=== PATIENT | male | born 1955 | race Caucasian/White ===

== ENCOUNTER → 2019-12-06 | Day surgery (SDC) | payer MEDICARE, BC ==
[2019-12-04 12:31] VITALS: BMI 29.5
[~2019-12-06] MED LIST: LACTATED RINGERS 1,000 ML IV SCH; LIDOCAINE 1% (10MG/ML) FOR IV START INTRADERMA PRN; PROPOFOL 10 MG/ML 20 ML VIAL IV ONE
[2019-12-06 10:39] VITALS: TEMP 97.2
--- NOTE | 2019-12-06 12:32 | P.PCN ---
Date of Procedure: 12/06/19 Procedure(s) Performed: BRIEF HISTORY: Patient is a 64-year-old pleasant male scheduled for an elective colonoscopy as a part of screening for colorectal neoplasia. PROCEDURE PERFORMED: Colonoscopy. PREOPERATIVE DIAGNOSIS: Screening for colon cancer. IV sedation per Anesthesia. PROCEDURE: After informed consent was obtained, the patient, was brought into the endoscopy unit. IV sedation was administered by Anesthesia under continuous monitoring. Digital rectal examination was normal. Initially the Olympus CF-160 flexible video colonoscope was then inserted in the rectum, gradually advanced into the cecum without any difficulty. Careful examination was performed as the scope was gradually being withdrawn. Ileocecal valve and the appendiceal orifice were visualized and appeared normal. Prep was excellent. Mucosa of the cecum, ascending colon, transverse colon, descending colon, sigmoid colon, and rectum appeared normal. Retroflexion was performed in the rectum and no lesions were seen. The patient tolerated the procedure well. IMPRESSION: Normal-appearing colon from rectum to cecum with no evidence of colorectal neoplasia . RECOMMENDATIONS: Findings of this examination were discussed with the patient as well as his family. He was advised to have a repeat screening colonoscopy in 10 years.
[2019-12-06 12:41] VITALS: RESP 16
[2019-12-06 12:51] VITALS: BP 163/84; PULSE 54
== END ==
LOC: ORWHC2ENDO 09:45
PROVIDERS: ATTEND Internal Medicine Gastroenterology
DX: Z12.11 Encounter for screening for malignant neoplasm of colon (principal); Z88.5 Allergy status to narcotic agent; Z79.899 Other long term (current) drug therapy; G43.909 Migraine, unspecified, not intractable, without status migrainosus
CPT/HCPCS: G0121; J2704; 45378

== ENCOUNTER → 2021-08-18 | Outpatient (CLI) | payer MEDICARE ==
--- NOTE | 2021-08-18 11:44 | XR ---
EXAMINATION TYPE: XR ribs bilateral DATE OF EXAM: 08/18/2021 COMPARISON: NONE HISTORY: Pain TECHNIQUE: 4 views were obtained in right and 4 views of the left rib cage. FINDINGS: Postcholecystectomy changes are noted. Chronic appearing deformities involving the right ri b cage consistent with remote trauma. There is a linear lucency through the posterior margin of left 10th rib. IMPRESSION: Suspicious for a hairline nondisplaced fracture posterior left 10th rib correlate with point tenderne ss.
== END | disposition home or self-care (01) ==
LOC: RADXRMAIN 10:47
PROVIDERS: ATTEND Internal Medicine
DX: R07.81 Pleurodynia (principal)
CPT/HCPCS: 71110

== ENCOUNTER 2022-02-22 21:36 | Observation (INO) | payer MEDICARE ==
[2022-02-22] MEDS ORDERED: SODIUM CHLORIDE 0.9% 1,000 ML IV ONE (21:45)
[2022-02-22 21:46] LABS: Glucose,Whole Blood 131 mg/dL (70-110)
[2022-02-22 22:10] LABS: Basophils # (A) 0.1 k/uL (0-0.2); Basophils % (A) 1 %; Eosinophils # (A) 0.4 k/uL (0-0.7); Eosinophils % (A) 5 %; HGB 14.2 gm/dL (13.0-17.5); Lymphocytes % (A) 41 %; MCH 33.8 pg (25.0-35.0); MCHC 34.7 g/dL (31.0-37.0); MCV 97.3 fL (80.0-100.0); Mean Platelet Volume 7.6; Monocytes # (A) 0.4 k/uL (0-1.0); Monocytes % (A) 5 %; Neutrophils # (A) 3.3 k/uL (1.3-7.7); Neutrophils % (A) 45 %; Platelet Count 215 k/uL (150-450); RBC 4.21 m/uL (4.30-5.90); RDW 12.7 % (11.5-15.5); WBC 7.2 k/uL (3.8-10.6)
[2022-02-22 22:25] LABS: ALT 25 U/L (4-49); AST 31 U/L (17-59); Acetaminophen <10.0 ug/mL; African American GFR (CKD) >90 (>60 ml/min/1.73 sqM); Albumin 4.7 g/dL (3.5-5.0); Alkaline Phosphatase 64 U/L (38-126); Anion Gap 10 mmol/L; Blood Urea Nitrogen 18 mg/dL (9-20); Carbon Dioxide 24 mmol/L (22-30); Chloride 104 mmol/L (98-107); Glucose 132 mg/dL (74-99); Non-African American GFR(CKD) >90 (>60 ml/min/1.73 sqM); Potassium 4.2 mmol/L (3.5-5.1); Salicylate <1.0 mg/dL; Sodium 138 mmol/L (137-145); Total Bilirubin 0.8 mg/dL (0.2-1.3); Total Protein 7.6 g/dL (6.3-8.2)
[2022-02-22 22:28] LABS: INR 0.9 (<1.2); Partial Thromboplastin Time 24.4 sec (22.0-30.0); Prothrombin Time 9.9 sec (9.0-12.0)
[2022-02-22 22:48] LABS: Alcohol 186 mg/dL
--- NOTE | 2022-02-22 23:07 | XR ---
EXAMINATION TYPE: XR chest 2V DATE OF EXAM: 02/22/2022 COMPARISON: NONE HISTORY: Altered mental status TECHNIQUE: 2 views FINDINGS: Heart is normal. Lungs are clear of consolidation. There are no hilar masses. Costophrenic angles are clear. There are chest leads. IMPRESSION: No active cardiopulmonary disease. Normal heart.
--- NOTE | 2022-02-22 23:08 | XR ---
EXAMINATION TYPE: XR pelvis AP view DATE OF EXAM: 02/22/2022 COMPARISON: NONE HISTORY: Syncope. Pain. TECHNIQUE: FINDINGS: A single view of the pelvis shows no fracture. Hip joint spaces are normal. Proximal femurs are intact. Sacroiliac joints are intact. IMPRESSION: Normal exam. No fracture.
--- NOTE | 2022-02-22 23:16 | CT ---
EXAMINATION TYPE: CT brain fouziaine wo con DATE OF EXAM: 02/22/2022 COMPARISON: None HISTORY: Altered mental status. New episodes of syncope. CT DLP: 1744.6 mGycm Automated exposure control for dose reduction was used. Images of the brain and cervical spine obtained with no contrast. Ventricles are fairly normal size. There is no mass effect or midline shift. No sign of intracranial hemorrhage. The calvarium is intact. There is hyperostosis frontalis. The cervical vertebra have normal alignment. Posterior elements are intact. No compression fracture. Disc spaces are normal. Prevertebral soft tissues are intact. Facet joints are intact. There is kaylan l aeration of the mastoid air cells. IMPRESSION: Normal CT scan of the cervical spine. Negative CT scan of the brain. No acute intracranial abnormality.
[2022-02-23] MEDS ORDERED: NALOXONE 0.4 MG/ML 1 ML VIAL IV PRN (00:37)
[2022-02-23 00:58] LABS: Appearance,Urine Clear (Clear); Bilirubin,Urine Negative (Negative); Blood,Urine Negative (Negative); Color,Urine Colorless; Glucose,Urine (UA) Negative (Negative); Ketones,Urine Negative (Negative); Leukocyte Esterase,Urine Negative (Negative); Nitrite,Urine Negative (Negative); PH, Urine 6.5 (5.0-8.0); Protein,Urine Negative (Negative); Specific Gravity,Urine 1.006 (1.001-1.035); Urobilinogen,Urine <2.0 mg/dL (<2.0)
[2022-02-23 01:18] LABS: Cocaine Screen,Urine Not Detected (NotDetected); Opiate Screen,Urine Detected (NotDetected); Phencyclidine Screen,Urine Not Detected (NotDetected); Urn Cannabinoid Scrn Not Detected (NotDetected)
[2022-02-23 01:19] LABS: Amphetamine Screen,Urine Not Detected (NotDetected); Barbiturate Screen,Urine Not Detected (NotDetected); Benzodiazepines Screen,Urine Not Detected (NotDetected); Methadone Screen, Urine Not Detected (NotDetected); Oxycodone Screen, Urine Not Detected (NotDetected); Tricyclic Antidepressant,Urine Not Detected (NotDetected)
[2022-02-23] MEDS ORDERED: LORazepam 2 MG/ML INJ IV PRN ×3 (02:42)
[2022-02-23] MEDS ORDERED: THIAMINE 100 MG/ML 2 ML VIAL IM STA (02:42)
--- NOTE | 2022-02-23 02:44 | P.HPIM ---
History of Present Illness H&P Date: 02/22/22 The patient is a 66-year-old male with a PMH of Klinefelter syndrome, and EtOH abuse who was brought into the emergency room by EMS after a fall and possible syncope. The patient reports that he had been drinking as per usual and had a few drinks when he was attempting to walk around in his house when he lost his balance and fell. He was unable to get up and crawled to his phone and contacted his sister was subsequently activated EMS. History was supplemented by the ED provider. The patient apparently had endorsed episodes of loss of consciousness to the ED provider. The patient's power of divorce attorney had expressed concerns due to possible previous episodes of syncope, at which point the d ecision was made to admit the patient for further evaluation. At time of interview, the patient does not recall the full length of the day but states that he may or may not have lost consciousness. He reports drinking 3 large drinks of alcohol daily as well as 2 shots. In the emergency room, a he ad/cervical spine CT was unremarkable with a pelvis x-ray unremarkable and a chest x-ray also unremarkable. Laboratory evaluation was remarkable for coronavirus PCR positive in serum alcohol level 186.. The patient denied experiencing cough, fever, chest pain, shortness of breath, nausea, vomiting. He denied experiencing head trauma, headaches, weakness, numbness, tingling, visual disturbance, or gait abnormalities. Review of systems: Pertinent positives and negatives as discussed in HPI, a complete review of systems was performed and all other systems are negative. Physical examination: General: non toxic, no distress, appears at stated age, obese Derm: no unusual rashes/lesions, warm Head: atraumatic, normocephalic, symmetric Eyes: EOMI, no lid lag, anicteric sclera, pupils equal round reactive to light ENT: Nose and ears atraumatic Neck: No cervical lymphadenopathy, trachea midline, supple Mouth: no lip lesion, mucus membranes moist Cardiovascular: S1S2 reg, no murmur, positive dorsalis pedis pulse bilateral, no edema Lungs: CTA bilateral, no rhonchi, no rales, no accessory muscle use Abdominal: soft, nontender to palpation, no guarding Ext: muscle strength 5 out of 5 in all 4 extremities grossly, no gross muscle atrophy, no contractures, Neuro: CN II-XI grossly intact, no gross focal neuro deficits Psych: Alert, oriented, appropriate affect Assessment/plan Fall, possible syncope, unclear etiology -May be due to alcohol intoxication -Fall precautions -Echocardiogram -Cardiac monitoring -Neurology consulted by ED provider Alcohol intoxication -Patient denied prior history of delirium tremens -Monitor for signs of withdrawal -Thiamine, multivitamin, IV fluids -Monitor electrolytes Coronavirus PCR positive -Patient currently asymptomatic -Monitor for now DVT prophylaxis -Heparin subcu The patient is admitted with an anticipated less than 2 midnight stay for evaluation of fall CODE STATUS: Full Code Discussed with: Patient Anticipated discharge date: in am Anticipated discharge place: Home Past Medical History Past Medical History: Cancer, GERD/Reflux, Neurologic Disorder Additional Past Medical History / Comment(s): hx stage 3 bone cancer-in remission per pt. + COLOGARD. MIGRAINE HEADACHES. CHRONIC SINUS INFECTIONS History of Any Multi-Drug Resistant Organisms: None Reported Past Surgical History: Cholecystectomy, Orthopedic Surgery Additional Past Surgical History / Comment(s): COLONOSCOPY. RT KNEE SX X 3. LT ROTATOR CUFF REPAIR. TUMORS REMOVED FROM NECK Past Anesthesia/Blood Transfusion Reactions: Postoperative Nausea & Vomiting (PONV) Past Psychological History: No Psychological Hx Reported Smoking Status: Former smoker - Past Family History Father Sister(s) Family Medical History: Cancer Medications and Allergies Home Medications Medication Instructions Recorded Confirmed Type Albuterol Sulfate [Proair Hfa] 1 - 2 puff INHALATION Q6HR PRN 12/04/19 12/04/19 History SUMAtriptan succinate [Imitrex] 100 mg PO DAILY PRN 12/04/19 12/04/19 History Topiramate [Topamax] 25 mg PO BID 12/04/19 12/04/19 History Allergies Allergy/AdvReac Type Severity Reaction Status Date / Time hydromorphone [From Dilaudid] Allergy Itching Verified 02/22/22 21:47 venom-honey bee Allergy Anaphylaxis Verified 02/22/22 21:47 venom-wasp Allergy Anaphylaxis Verified 02/22/22 21:47 Physical Exam Vitals: Vital Signs Temp Pulse Resp BP Pulse Ox 02/23/22 02:00 76 15 151/78 95 02/23/22 00:47 76 16 148/90 98 02/22/22 23:47 78 16 155/78 98 02/22/22 21:40 97.5 F L 87 19 179/95 100 Intake and Output 02/22/22 02/22/22 02/23/22 14:59 22:59 06:59 Other: Weight 124.284 kg Results CBC & Chem 7: 02/22/22 21:54 02/22/22 21:54 Labs: Abnormal Lab Results - Last 24 Hours (Table) 02/22/22 02/22/22 02/22/22 Range/Units 21:45 21:54 21:54 RBC 4.21 L (4.30-5.90) m/uL Glucose 132 H (74-99) mg/dL POC Glucose (mg/dL) 131 H (70-110) mg/dL Urine Opiates Screen (NotDetected) SARS-CoV-2 (PCR) (Not Detectd) 02/22/22 02/22/22 Range/Units 21:54 23:59 RBC (4.30-5.90) m/uL Glucose (74-99) mg/dL POC Glucose (mg/dL) (70-110) mg/dL Urine Opiates Screen Detected H (NotDetected) SARS-CoV-2 (PCR) Detected A (Not Detectd)
[2022-02-23] MEDS ORDERED: SODIUM CHLORIDE 0.9% 1,000 ML IV SCH (02:45)
--- NOTE | 2022-02-23 03:37 | ED ---
General Adult HPI - General Chief complaint: Syncope Stated complaint: Altered Mental Status Time Seen by Provider: 02/22/22 21:37 Source: patient, family, EMS, RN notes reviewed, old records reviewed Mode of arrival: EMS - History of Present Illness Initial comments: Patient is a 66-year-old male with past medical history remarkable for neurological disorder, GERD, cancer who presents emergency department after suspected syncopal episodes at home. Patient exited family stating he doesn't feel well. States he was drinking "a few drinks" of alcohol this evening. They found him on the ground at home. He believed he was unresponsive and "not breathing" however when EMS arrived he was awake. Minimal if any confusion. Was talking full sentences. He then would become "unresponsive" for EMS but required minimal if any stimulation to awaken. Patient states he was able to hear voices around him when these episodes were occurring. Woke no longer confused. Denies any tongue biting or incontinence. Does endorse drinking alcohol this evening. No other acute complaints at this time. Family corroborated the story. Presents for further evaluation at this time. Denies any history of DTs or alcohol withdrawals. Denies any history of seizures. No history of psychiatric illness. States he is not on blood thinners. Does not believe that he has had.When patient arrived, he was having one of his episodes of passing out, and all I did was gently open his eyelids to check his pupils and he awoke with no confusion whatsoever. This occurred a second time and a similar event occurred. Was not typical for syncopal episode, or postictal confusion state. Patient was able to fight full history otherwise. - Related Data Home Medications Medication Instructions Recorded Confirmed Albuterol Sulfate [Proair Hfa] 1 - 2 puff INHALATION Q6HR PRN 12/04/19 12/04/19 SUMAtriptan succinate [Imitrex] 100 mg PO DAILY PRN 12/04/19 12/04/19 Topiramate [Topamax] 25 mg PO BID 12/04/19 12/04/19 Allergies Allergy/AdvReac Type Severity Reaction Status Date / Time hydromorphone [From Dilaudid] Allergy Itching Verified 02/22/22 21:47 venom-honey bee Allergy Anaphylaxis Verified 02/22/22 21:47 venom-wasp Allergy Anaphylaxis Verified 01/17/23 21:47 Review of Systems ROS Statement: Those systems with pertinent positive or pertinent negative responses have been documented in the HPI. Review of Systems: CONST: Denies fever EYES: Denies blurry vision ENT: Denies nasal congestion C/V: Denies Chest pain RESP: Denies shortness of breath GI: Denies abdominal pain : Denies dysuria SKIN: Denies rash. MSK: Denies joint pain. NEURO: Denies headache ROS Other: All systems not noted in ROS Statement are negative. Past Medical History Past Medical History: Cancer, GERD/Reflux, Neurologic Disorder Additional Past Medical History / Comment(s): hx stage 3 bone cancer-in remission per pt. + COLOGARD. MIGRAINE HEADACHES. CHRONIC SINUS INFECTIONS History of Any Multi-Drug Resistant Organisms: None Reported Past Surgical History: Cholecystectomy, Orthopedic Surgery Additional Past Surgical History / Comment(s): COLONOSCOPY. RT KNEE SX X 3. LT ROTATOR CUFF REPAIR. TUMORS REMOVED FROM NECK Past Anesthesia/Blood Transfusion Reactions: Postoperative Nausea & Vomiting (PONV) Past Psychological History: No Psychological Hx Reported Smoking Status: Former smoker - Past Family History Father Sister(s) Family Medical History: Cancer General Exam - General Exam Comments Initial Comments: General: Appears in no acute distress. Appears acutely intoxicated with alcohol. HEAD: Normal with no signs of head trauma. Negative Vargas sign, negative raccoon eyes. EYES: PERRLA, EOMI, conjunctiva normal, no discharge. Pupils are 3 mm and equal bilaterally. ENT: Hearing grossly intact, normal oropharynx. RESPIRATORY: Clear breath sounds bilaterally. No wheezes, rales, or rhonchi. C/V: Regular rate and rhythm. S1 and S2 auscultated, no edema, peripheral pulses 2+ and intact throughout ABD: Abd is soft, nontender, nondistended EXT: Normal range of motion, no obvious deformity. Pelvis is stable. No midline spine tenderness to palpation. SKIN: No rashes or lesions observed on exposed skin. NEURO: Alert and oriented x 4. Cranial nerves II-XII intact. No focal sensory or strength deficits. GCS of 15. NIH is 0. Course Vital Signs 02/22/22 02/22/22 02/23/22 21:40 23:47 00:47 Temperature 97.5 F L Pulse Rate 87 78 76 Respiratory 19 16 16 Rate Blood Pressure 179/95 155/78 148/90 O2 Sat by Pulse 100 98 98 Oximetry 02/23/22 02:00 Temperature Pulse Rate 76 Respiratory 15 Rate Blood Pressure 151/78 O2 Sat by Pulse 95 Oximetry Medical Decision Making - Medical Decision Making Based on the patient's presentation and physical exam, I'm uncertain what exactly caused the patient to have "passing out episodes" at home. Cannot rule out intracranial injury, infectious, cardiac etiology. However the "passing out episodes" occurred while here in the department in front of me inpatient was easily awakens by simply shaking the shoulder or opening his eyes. They do not appear to be real syncopal episodes. They also do not appear to be seizures. Possible pseudoseizures. Possibly related to his alcohol intoxication. Patient states that he fell at home which is why he called EMS. Family was concerned that he passed out. Denies any coughing or anything else. We will obtain broad altered mental status workup. He was in agreement this plan. Vital signs with in acceptable limits. Exam is unremarkable. Lavatory studies were remarkable for an undetectable troponin. Opiates are positive. Patient's on-call level is 186. Patient is incidentally positive for Covid with no symptoms. EKG showed no signs of ischemia. Chest x-ray reveals no acute cardio Poni process. Pelvis x-ray reveals no acute injury. Head CT reveals no intracranial injury or hemorrhage. CT C-spine reveals no acute injury. On reevaluation, patient appears well. Exam is unchanged. He is alert, speaking in full sentences. Still appears in talking with alcohol. Family is at bedside. Family and patient are insisting that he had a syncopal episode. We did discuss his workup in the story that was provided. I did express my belief that if it was a syncopal episode, it did appear atypical and his workup was unremarkable. They would like him to be evaluated by neurology, as they stated it happened multiple times. I do not believe this is unreasonable therefore they will be admitted to observation with neurology consult. I spoke with the admitting physician, Dr. Gaytan who accepted the admission. Neurology was consulted. Was pt. sent in by a medical professional or institution (, [facility], UNDERWRITING CONSULTANT, urgent care, hospital, or snf...) When possible be specific @ -No Did you speak to anyone other than the patient for history (EMS, parent, family, police, friend...)? What history was obtained from this source @ -Yes, patient's sister was at bedside and provided some history of the nigh t's events. Did you review nursing and triage notes (agree or disagree)? Why? @ -I reviewed and agree with nursing and triage notes Were old charts reviewed (outside hosp., previous admission, EMS record, old EKG, old radiological studies, urgent care reports/EKG's, snf records)? Report findings @ -No old charts were reviewed Differential Diagnosis (chest pain, altered mental status, abdominal pain women, abdominal pain men, vaginal bleeding, weakness, fever, dyspnea, syncope, headache, dizziness, GI bleed, back pain, seizure, CVA, palpatations, mental health)? @ -Differential Altered Mental Status: Hypoglycemia, DKA, hypercapnia, ETOH, overdose, CO poisoning, trauma, myxedema coma, HTN encephalopathy, infection, encephalitis, psychosis, intercranial hemorrhage, hepatic encephalopathy, meningitis, CVA, this is not meant to be an all-inclusive list EKG interpreted by me (3pts min.). @ -As above X-rays interpreted by me (1pt min.). @ -Chest x-ray showed no acute cardio pulmonary process, injury. Pelvis x-ray reveals no acute injury CT interpreted by me (1pt min.). @ -CT brain reveals no acute intracranial process, hemorrhage. CT C-spine rev eals no acute injury. U/S interpreted by me (1pt. min.). @ -None done What testing was considered but not performed or refused? (CT, X-rays, U/S, labs)? Why? @ -None What meds were considered but not given or refused? Why? @ -None Did you discuss the management of the patient with other professionals (professionals i.e. , PA, UNDERWRITING CONSULTANT, lab, RT, psych nurse, nursing home social worker, tractor operator battery, teacher, disciplinary hearing officer, bilingual case manager)? Give summary @ -No Was smoking cessation discussed for >3mins.? @ -No Was critical care preformed (if so, how long)? @ -Yes. 35 minutes. Were there social determinants of health that impacted care today? How? (Homelessness, low income, unemployed, alcoholism, drug addiction, transportation, low edu. Level, literacy, decrease access to med. care, nursing home, rehab)? @ -No Was there de-escalation of care discussed even if they declined (Discuss DNR or withdrawal of care, Hospice)? DNR status @ -No What co-morbidities impacted this encounter? (DM, HTN, Smoking, COPD, CAD, Cancer, CVA, ARF, Chemo, Hep., AIDS, mental health diagnosis, sleep apnea, morbid obesity)? @ -Alcohol intoxication Was patient admitted / discharged? Hospital course, mention meds given and route, prescriptions, significant lab abnormalities, going to OR and other pertinent info. @ -Patient was admitted to observation. See above for ED course. Undiagnosed new problem with uncertain prognosis? @ -No Drug Therapy requiring intensive monitoring for toxicity (Heparin, Nitro, Insulin, Cardizem)? @ -No Were any procedures done? @ -No Diagnosis/symptom? @ -Possible syncopal episode versus fall versus pseudoseizure Acute, or Chronic, or Acute on Chronic? @ -Acute Uncomplicated (without systemic symptoms) or Complicated (systemic symptoms)? @ -Uncomplicated Side effects of treatment? @ -No Exacerbation, Progression, or Severe Exacerbation? @ -No Poses a threat to life or bodily function? How? (Chest pain, USA, CT, pneumonia, PE, COPD, DKA, ARF, appy, cholecystitis, CVA, Diverticulitis, Homicidal, Gabriel icidal, threat to staff... and all critical care pts) @ -No Diagnosis/symptom? @ -Altered mental status Acute, or Chronic, or Acute on Chronic? @ -Acute Uncomplicated (without systemic symptoms) or Complicated (systemic symptoms)? @ -Uncomplicated Side effects of treatment? @ -none Exacerbation, Progression, or Severe Exacerbation] @ -no Poses a threat to life or bodily function? @ -no Diagnosis/symptom? @ -Acute alcohol intoxication Acute, or Chronic, or Acute on Chronic? @ -Acute Uncomplicated (without systemic symptoms) or Complicated (systemic symptoms)? @ -Uncomplicated Side effects of treatment? @ -none Exacerbation, Progression, or Severe Exacerbation] @ -no Poses a threat to life or bodily function? @ -no - Lab Data Result diagrams: 02/22/22 21:54 02/22/22 21:54 Lab Results 02/22/22 02/22/22 02/22/22 Range/Units 21:45 21:54 21:54 WBC 7.2 (3.8-10.6) k/uL RBC 4.21 L (4.30-5.90) m/uL Hgb 14.2 (13.0-17.5) gm/dL Hct 41.0 (39.0-53.0) % MCV 97.3 (80.0-100.0) fL MCH 33.8 (25.0-35.0) pg MCHC 34.7 (31.0-37.0) g/dL RDW 12.7 (11.5-15.5) % Plt Count 215 (150-450) k/uL MPV 7.6 Neutrophils % 45 % Lymphocytes % 41 % Monocytes % 5 % Eosinophils % 5 % Basophils % 1 % Neutrophils # 3.3 (1.3-7.7) k/uL Lymphocytes # 3.0 (1.0-4.8) k/uL Monocytes # 0.4 (0-1.0) k/uL Eosinophils # 0.4 (0-0.7) k/uL Basophils # 0.1 (0-0.2) k/uL PT 9.9 (9.0-12.0) sec INR 0.9 (<1.2) APTT 24.4 (22.0-30.0) sec Sodium (137-145) mmol/L Potassium (3.5-5.1) mmol/L Chloride (98-107) mmol/L Carbon Dioxide (22-30) mmol/L Anion Gap mmol/L BUN (9-20) mg/dL Creatinine (0.66-1.25) mg/dL Est GFR (CKD-EPI)AfAm (>60 ml/min/1.73 sqM) Est GFR (CKD-EPI)NonAf (>60 ml/min/1.73 sqM) Glucose (74-99) mg/dL POC Glucose (mg/dL) 131 H (70-110) mg/dL POC Glu Student Loan Counselor ID Sathish Saha Calcium (8.4-10.2) mg/dL Total Bilirubin (0.2-1.3) mg/dL AST (17-59) U/L ALT (4-49) U/L Alkaline Phosphatase (38-126) U/L Ammonia (<30) umol/L Troponin I (0.000-0.034) ng/mL Total Protein (6.3-8.2) g/dL Albumin (3.5-5.0) g/dL Urine Color Urine Appearance (Clear) Urine pH (5.0-8.0) Ur Specific Barton (1.001-1.035) Urine Protein (Negative) Urine Glucose (UA) (Negative) Urine Ketones (Negative) Urine Blood (Negative) Urine Nitrite (Negative) Urine Bilirubin (Negative) Urine Urobilinogen (<2.0) mg/dL Ur Leukocyte Esterase (Negative) Salicylates mg/dL Urine Opiates Screen (NotDetected) Ur Oxycodone Screen (NotDetected) Urine Methadone Screen (NotDetected) Ur Propoxyphene Screen (NotDetected) Acetaminophen ug/mL Ur Barbiturates Screen (NotDetected) U Tricyclic Antidepress (NotDetected) Ur Phencyclidine Scrn (NotDetected) Ur Amphetamines Screen (NotDetected) U Methamphetamines Scrn (NotDetected) U Benzodiazepines Scrn (NotDetected) Urine Cocaine Screen (NotDetected) U Marijuana (THC) Screen (NotDetected) Serum Alcohol mg/dL Influenza Type A (PCR) (Not Detectd) Influenza Type B (PCR) (Not Detectd) RSV (PCR) (Not Detectd) SARS-CoV-2 (PCR) (Not Detectd) 02/22/22 02/22/22 02/22/22 Range/Units 21:54 21:54 21:54 WBC (3.8-10.6) k/uL RBC (4.30-5.90) m/uL Hgb (13.0-17.5) gm/dL Hct (39.0-53.0) % MCV (80.0-100.0) fL MCH (25.0-35.0) pg MCHC (31.0-37.0) g/dL RDW (11.5-15.5) % Plt Count (150-450) k/uL MPV Neutrophils % % Lymphocytes % % Monocytes % % Eosinophils % % Basophils % % Neutrophils # (1.3-7.7) k/uL Lymphocytes # (1.0-4.8) k/uL Monocytes # (0-1.0) k/uL Eosinophils # (0-0.7) k/uL Basophils # (0-0.2) k/uL PT (9.0-12.0) sec INR (<1.2) APTT (22.0-30.0) sec Sodium 138 (137-145) mmol/L Potassium 4.2 (3.5-5.1) mmol/L Chloride 104 (98-107) mmol/L Carbon Dioxide 24 (22-30) mmol/L Anion Gap 10 mmol/L BUN 18 (9-20) mg/dL Creatinine 0.83 (0.66-1.25) mg/dL Est GFR (CKD-EPI)AfAm >90 (>60 ml/min/1.73 sqM) Est GFR (CKD-EPI)NonAf >90 (>60 ml/min/1.73 sqM) Glucose 132 H (74-99) mg/dL POC Glucose (mg/dL) (70-110) mg/dL POC Glu Student Loan Counselor ID Calcium 9.0 (8.4-10.2) mg/dL Total Bilirubin 0.8 (0.2-1.3) mg/dL AST 31 (17-59) U/L ALT 25 (4-49) U/L Alkaline Phosphatase 64 (38-126) U/L Ammonia 10 (<30) umol/L Troponin I <0.012 (0.000-0.034) ng/mL Total Protein 7.6 (6.3-8.2) g/dL Albumin 4.7 (3.5-5.0) g/dL Urine Color Urine Appearance (Clear) Urine pH (5.0-8.0) Ur Specific Barton (1.001-1.035) Urine Protein (Negative) Urine Glucose (UA) (Negative) Urine Ketones (Negative) Urine Blood (Negative) Urine Nitrite (Negative) Urine Bilirubin (Negative) Urine Urobilinogen (<2.0) mg/dL Ur Leukocyte Esterase (Negative) Salicylates <1.0 mg/dL Urine Opiates Screen (NotDetected) Ur Oxycodone Screen (NotDetected) Urine Methadone Screen (NotDetected) Ur Propoxyphene Screen (NotDetected) Acetaminophen <10.0 ug/mL Ur Barbiturates Screen (NotDetected) U Tricyclic Antidepress (NotDetected) Ur Phencyclidine Scrn (NotDetected) Ur Amphetamines Screen (NotDetected) U Methamphetamines Scrn (NotDetected) U Benzodiazepines Scrn (NotDetected) Urine Cocaine Screen (NotDetected) U Marijuana (THC) Screen (NotDetected) Serum Alcohol 186 mg/dL Influenza Type A (PCR) (Not Detectd) Influenza Type B (PCR) (Not Detectd) RSV (PCR) (Not Detectd) SARS-CoV-2 (PCR) (Not Detectd) 02/22/22 02/22/22 Range/Units 21:54 23:59 WBC (3.8-10.6) k/uL RBC (4.30-5.90) m/uL Hgb (13.0-17.5) gm/dL Hct (39.0-53.0) % MCV (80.0-100.0) fL MCH (25.0-35.0) pg MCHC (31.0-37.0) g/dL RDW (11.5-15.5) % Plt Count (150-450) k/uL MPV Neutrophils % % Lymphocytes % % Monocytes % % Eosinophils % % Basophils % % Neutrophils # (1.3-7.7) k/uL Lymphocytes # (1.0-4.8) k/uL Monocytes # (0-1.0) k/uL Eosinophils # (0-0.7) k/uL Basophils # (0-0.2) k/uL PT (9.0-12.0) sec INR (<1.2) APTT (22.0-30.0) sec Sodium (137-145) mmol/L Potassium (3.5-5.1) mmol/L Chloride (98-107) mmol/L Carbon Dioxide (22-30) mmol/L Anion Gap mmol/L BUN (9-20) mg/dL Creatinine (0.66-1.25) mg/dL Est GFR (CKD-EPI)AfAm (>60 ml/min/1.73 sqM) Est GFR (CKD-EPI)NonAf (>60 ml/min/1.73 sqM) Glucose (74-99) mg/dL POC Glucose (mg/dL) (70-110) mg/dL POC Glu Student Loan Counselor ID Calcium (8.4-10.2) mg/dL Total Bilirubin (0.2-1.3) mg/dL AST (17-59) U/L ALT (4-49) U/L Alkaline Phosphatase (38-126) U/L Ammonia (<30) umol/L Troponin I (0.000-0.034) ng/mL Total Protein (6.3-8.2) g/dL Albumin (3.5-5.0) g/dL Urine Color Colorless Urine Appearance Clear (Clear) Urine pH 6.5 (5.0-8.0) Ur Specific Barton 1.006 (1.001-1.035) Urine Protein Negative (Negative) Urine Glucose (UA) Negative (Negative) Urine Ketones Negative (Negative) Urine Blood Negative (Negative) Urine Nitrite Negative (Negative) Urine Bilirubin Negative (Negative) Urine Urobilinogen <2.0 (<2.0) mg/dL Ur Leukocyte Esterase Negative (Negative) Salicylates mg/dL Urine Opiates Screen Detected H (NotDetected) Ur Oxycodone Screen Not Detected (NotDetected) Urine Methadone Screen Not Detected (NotDetected) Ur Propoxyphene Screen Not Detected (NotDetected) Acetaminophen ug/mL Ur Barbiturates Screen Not Detected (NotDetected) U Tricyclic Antidepress Not Detected (NotDetected) Ur Phencyclidine Scrn Not Detected (NotDetected) Ur Amphetamines Screen Not Detected (NotDetected) U Methamphetamines Scrn Not Detected (NotDetected) U Benzodiazepines Scrn Not Detected (NotDetected) Urine Cocaine Screen Not Detected (NotDetected) U Marijuana (THC) Screen Not Detected (NotDetected) Serum Alcohol mg/dL Influenza Type A (PCR) Not Detected (Not Detectd) Influenza Type B (PCR) Not Detected (Not Detectd) RSV (PCR) Not Detected (Not Detectd) SARS-CoV-2 (PCR) Detected A (Not Detectd) - EKG Data -: EKG Interpreted by Me EKG Comments: 12-lead Electrocardiogram Interpretation Note EKG was reviewed and interpreted by myself. 12-lead ECG performed at 2145 is interpreted by me as revealing normal sinus rhythm at a rate of 86 beats per minute. [place] is normal. ND interval is 194 ms. QRS durations 111 ms, QTc is 399 ms.. There were no ST or T wave abnormalities to suggest myocardial ischemia or injury. R wave progression across the precordium was satisfactory. By my interpretation this EKG is non-diagnostic for acute ischemia. No prior EKG for comparison. Critical Care Time Critical Care Time: Yes Total Critical Care Time: 35 Critical Care Time: Upon my evaluation, this patient had a high probability of imminent or life-threatening deterioration due to altered mental status, possible syncope, fall, alcohol intoxication, which required my direct attention, intervention, and personal management. I have personally provided 35 minutes of critical care time exclusive of time spent on separately billable procedures. Time includes review of laboratory data, radiology results, discussion with consultants, and monitoring for potential decompensation. Interventions were performed as documented in my note. Disposition Clinical Impression: Fall, Syncope, Altered mental status, Alcohol intoxication Disposition: ADMITTED IP TO THIS HOSP Condition: Stable Time of Disposition: 00:37
[2022-02-23] MEDS ORDERED: HEPARIN SODIUM,PORCINE/PF 5,000 UNIT/0.5 ML SYRINGE SQ SCH (08:00)
[2022-02-23 08:32] VITALS: BP 169/89; PULSE 85; RESP 18; TEMP 98.1
[2022-02-23] MEDS ORDERED: MULTIVITAMINS, THERA 1 EACH TAB PO SCH (09:00)
[2022-02-23] MEDS ORDERED: FOLIC ACID 1 MG TAB PO SCH (09:00)
--- NOTE | 2022-02-23 14:20 | P.DS ---
Providers Date of admission: 02/23/22 00:38 Expected date of discharge: 02/23/22 Attending physician: Talat Gaytan MD Consults: 02/23/22 00:37 Consult Physician Routine Consulting Provider: Rodrick Gibbons Consult Reason/Comments: syncope? pseudoseizure? Do you want consulting provider notified?: Yes, Notify in am Primary care physician: [facility] Course: The patient is a 66-year-old male with a PMH of Klinefelter syndrome, and EtOH abuse who was brought into the emergency room by EMS after a fall and possible syncope. The patient reports that he had been drinking as per usual and had a few drinks when he was attempting to walk around in his house when he lost his balance and fell. He was unable to get up and crawled to his phone and contacted his sister was subsequently activated EMS. History was supplemented by the ED provider. The patient apparently had endorsed episodes of loss of consciousness to the ED provider. The patient's power of patent prosecution attorney had expressed concerns due to possible previous episodes of syncope, at which point the decision was made to admit the patient for further evaluation. At time of interview, the patient does not recall the full length of the day but states that he may or may not have lost consciousness. He reports drinking 3 large drinks of alcohol daily as well as 2 shots. In the emergency room, a head/ce rvical spine CT was unremarkable with a pelvis x-ray unremarkable and a chest x- ray also unremarkable. Laboratory evaluation was remarkable for coronavirus PCR positive in serum alcohol level 186.. The patient denied experiencing cough, fever, chest pain, shortness of breath, nausea, vomiting. He denied experiencing head trauma, headaches, weakness, numbness, tingling, visual disturbance, or gait abnormalities. Echocardiogram was ordered. Neurology was consulted by the ED provider. Patient left against medical prior to being seen by me. Pertinent studies include chest x-ray, pelvis x-ray, head CT, CT C-spine Discharge diagnosis: Fall, possible syncope, unclear etiology Alcohol intoxication Coronavirus PCR positive Patient Condition at Discharge: Undetermined Plan - Discharge Summary New Discharge Prescriptions: No Action Albuterol Sulfate [Proair Hfa] 2 puff INHALATION RT-Q6H PRN PRN Reason: Shortness Of Breath Topiramate [Topamax] 25 mg PO BID Discharge Medication List Albuterol Sulfate [Proair Hfa] 2 puff INHALATION RT-Q6H PRN 12/04/19 [History] Topiramate [Topamax] 25 mg PO BID 12/04/19 [History] Discharge Disposition: Left Against Medical Advice
--- NOTE | 2022-02-23 18:06 | P.PN ---
Progress Note - Text Progress Note Date: 02/23/22 I have ordered an EEG because of consult of syncope or pseudoseizure. It seems patient has left AMA.
[2022-02-24] MEDS ORDERED: THIAMINE 100 MG TAB PO SCH (09:00)
== END 2022-02-23 10:25 | disposition left against medical advice (07) ==
LOC: EC 21:36 → 6NMEDSUR 02-23 00:38
PROVIDERS: ADMIT Internal Medicine; ATTEND Internal Medicine
DX: F10.129 Alcohol abuse with intoxication, unspecified (principal); Y90.6 Blood alcohol level of 120-199 mg/100 ml; W19.XXXA Unspecified fall, initial encounter; U07.1 COVID-19; Z53.29 Procedure and treatment not carried out because of patient's decision for other reasons; R41.82 Altered mental status, unspecified; Q98.4 Klinefelter syndrome, unspecified; C41.9 Malignant neoplasm of bone and articular cartilage, unspecified; K21.9 Gastro-esophageal reflux disease without esophagitis; R29.90 Unspecified symptoms and signs involving the nervous system; G43.909 Migraine, unspecified, not intractable, without status migrainosus; Z79.899 Other long term (current) drug therapy; Z88.5 Allergy status to narcotic agent; Z91.030 Bee allergy status; Z91.038 Other insect allergy status
CPT/HCPCS: 96372; 99291; 36415; 93005; 80053; 82140; 84484; 85025; 85610; 85730; 81003; 80306; 80143; 87636; 80179; 72170; 71046; 72125; 70450; G0378; G0480; J1644; 80320

== ENCOUNTER → 2022-05-17 | Outpatient (CLI) | payer MEDICARE ==
--- NOTE | 2022-05-17 12:08 | US ---
EXAMINATION TYPE: US carotid duplex BILAT DATE OF EXAM: 05/17/2022 COMPARISON: NONE CLINICAL HISTORY: R55 SYNCOPE AND COLLAPSE. TECHNIQUE: Carotid duplex ultrasound examination. Indirect Doppler criteria was utilized. FINDINGS: EXAM MEASUREMENTS: RIGHT: Peak Systolic Velocity (PSV) cm/sec ----- Right CCA: 101 ----- Right ICA: 87.0 ----- Right ECA: 140 ICA/CCA ratio: 0.9 RIGHT: End Diastole cm/sec ----- Right CCA: 19.0 ----- Right ICA: 13.6 ----- Right ECA: 14.9 LEFT: Peak Systolic Velocity (PSV) cm/sec ----- Left CCA: 84.3 ----- Left ICA: 72.7 ----- Left ECA: 165 ICA/CCA ratio: 0.9 LEFT: End Diastole cm/sec ----- Left CCA: 14.3 ----- Left ICA: 18.6 ----- Left ECA: 12.9 VERTEBRALS (direction of flow): Right Vertebral: Antegrade Left Vertebral: Antegrade Rhythm: Normal ASSEMBLER CRIMPER NOTES: Slightly elevated velocities bilateral ECA's, otherwise no significant stenosis IMPRESSION: Less than 50% stenosis of the bilateral carotid bifurcations. Criteria for Assigning % of Stenosis / Diameter reduction (Estimation based on the indirect measurements of the internal carotid artery velocities (ICA PSV). 1. Normal (no stenosis)=ICA PSV < 125 cm/s: ratio < 2.0: ICA EDV<40 cm/s. 2. Less than 50% stenosis=ICA PSV < 125 cm/s: ratio < 2.0: ICA EDV<40 cm/s. 3. 50 to 69% stenosis=ICA PSV of 125 to 230 cm/s: ration 2.0 ? 4.0: ICA EDV 40-100 cm/s. 4. Greater than 70% stenosis to near occlusion= ICA PSV > 230 cm/s: ratio > 4.0: ICA EDV > 100 cm/s. 5. Near occlusion= ICA PSV velocities may be low or undetectable: variable ratio and ICA EDV. 6. Total occlusion=unable to detect flow.
== END | disposition home or self-care (01) ==
LOC: RADUSWWP 10:36
PROVIDERS: ATTEND Family Medicine
DX: I65.23 Occlusion and stenosis of bilateral carotid arteries (principal)
CPT/HCPCS: 93880

== ENCOUNTER → 2022-07-13 | Outpatient (CLI) | payer MEDICARE ==
[2022-07-13 12:10] LABS: African American GFR (CKD) >90 (>60 ml/min/1.73 sqM); Anion Gap 11 mmol/L; Blood Urea Nitrogen 22 mg/dL (9-20); Carbon Dioxide 22 mmol/L (22-30); Chloride 105 mmol/L (98-107); Non-African American GFR(CKD) >90 (>60 ml/min/1.73 sqM); Sodium 138 mmol/L (137-145)
[2022-07-13 12:19] LABS: Potassium 4.6 mmol/L (3.5-5.1)
[2022-07-13 19:55] LABS: HCT 44.7 % (39.6-50.0); HGB 14.5 d/dL (12.0-15.0); MCH 32.8 pg (27.0-32.0); MCHC 32.4 d/dL (32.0-37.0); MCV 101.1 FL (80.0-97.0); Mean Platelet Volume 10.9 FL (9.5-12.2); NRBC Per 100 WBC 0 X 10*3/uL (0.00-0.01); Platelet Count 192 X 10*3/uL (140-440); RBC 4.42 X 10*6/uL (4.40-5.60); RDW 12.5 % (11.5-14.5); WBC 7.03 X 10*3/uL (4.50-10.00)
== END | disposition home or self-care (01) ==
LOC: LABPAT 09:35
PROVIDERS: ATTEND Internal Medicine Interventional Cardiology
DX: Z01.812 Encounter for preprocedural laboratory examination (principal); I50.22 Chronic systolic (congestive) heart failure; R07.9 Chest pain, unspecified
CPT/HCPCS: 80051; 82565; 84520; 85027

== ENCOUNTER 2022-07-25 05:59 | Day surgery (SDC) | payer MEDICARE ==
[2022-07-21 12:20] VITALS: BMI 28.0
[2022-07-25] MEDS ORDERED: ALPRAZolam 0.5 MG TAB PO PRN (06:15)
[2022-07-25] MEDS ORDERED: SODIUM CHLORIDE 0.9% 1,000 ML in EMPTY BAG 1 BAG IV SCH (06:15)
[2022-07-25] MEDS ORDERED: ASPIRIN 325 MG TAB PO STA (06:15)
[2022-07-25] MEDS ORDERED: ALPRAZolam 0.25 MG TAB PO PRN (06:15)
[2022-07-25] MEDS ORDERED: NITROGLYCERIN SL TABS 0.4 MG TAB SUBLINGUAL PRN (06:15)
[2022-07-25] MEDS ORDERED: SODIUM CHLORIDE 0.9% 1,000 ML IV ONE ×2 (06:37→07:09)
[2022-07-25 07:08] VITALS: RESP 16; TEMP 97.6
[2022-07-25] MEDS ORDERED: VERAPAMIL 2.5 MG/ML 2 ML AMP ONE (07:19)
[2022-07-25] MEDS ORDERED: MIDAZOLAM 2 MG/2 ML VIAL IV ONE (07:35)
[2022-07-25] MEDS ORDERED: LIDOCAINE 1% INJ 10MG/ML (5 ML VIAL-PF) SQ ONE (07:39)
[2022-07-25] MEDS ORDERED: LIDOCAINE 1% INJ 10MG/ML (20 ML MDV) ONE (07:47)
[2022-07-25] MEDS ORDERED: LIDOCAINE 1% INJ 10MG/ML (20 ML MDV) SQ ONE (07:49)
[2022-07-25] MEDS ORDERED: IOPAMIDOL-370 125ML BTL INJ ONE (07:58)
[2022-07-25] MEDS ORDERED: fentaNYL (PF) 50 MCG/ML 2 ML AMP ONE (07:59)
[2022-07-25] MEDS ORDERED: fentaNYL (PF) 50 MCG/ML 2 ML AMP IV ONE (08:00)
[2022-07-25] MEDS ORDERED: RX INFO: IV CONTRAST WAS GIVEN 1 EACH MISC MISCELLANE PRN (08:03)
--- NOTE | 2022-07-25 08:07 | P.PCN ---
Date of Procedure: 07/25/22 Operative Findings: CARDIAC CATHETERIZATION PERFORMING PHYSICIAN: Lennox Roe MD, RPVI PROCEDURE PERFORMED: 1. Selective right and left coronary angiogram 2. Left heart catheterization 3. Ultrasound-guided access of the right femoral artery and right femoral artery angiogram INDICATION: Chest discomfort concerning for angina COMPLICATION: None APPROACH: Right common femoral artery LEVEL OF SEDATION: Moderate with sedation in length of 21 minutes PROCEDURE DESCRIPTION: After obtaining an informed consent, the patient was brought to cardiac cath lab technologist. Local anesthesia was performed using lidocaine subcutaneously. The right common femoral artery was cannulated using Seldinger technique, the guidewire passed easily, following that we advanced a 6 [place] sheath dilator assembly, the wire and dilator were removed and sheath was flushed. Selective right and left coronary angiogram using a 6-[place] JR4 and JL catheters. Following that we did left heart catheterization using 6-[place] pigtail catheter. The procedure was completed there was no complication. SELECTIVE CORONARY ANGIOGRAM: The right coronary artery: Large caliber vessel and a dominant vessel and appeared to be angiographically normal. Distally bifurcates into PDA and PLV branches and both appeared to be angiographically normal Left main: Is normal. Bifurcates into a CXR and LAD The left circumflex: Large caliber vessel nondominant vessel. The LCx is angiographically normal. Gives rises into OM1 which appeared to be angiographically normal The left anterior descending artery: Is angiographically normal and gives rise into 3 diagonal branches all appear to be angiographically normal HEMODYNAMICS: LVEDP was 20 mmHg was no significant gradient across aortic valve CONCLUSION: 1. Normal coronary angiogram 2. Normal left-sided filling pressure POSTPROCEDURE MANAGEMENT: Medical treatment and follow-up with the patient
[2022-07-25] MEDS ORDERED: SODIUM CHLORIDE 0.9% 1,000 ML IV SCH (08:15)
[2022-07-25 11:36] VITALS: BP 121/72; PULSE 69
== END 2022-07-25 12:00 | disposition home or self-care (01) ==
LOC: CATHCVL 05:59
PROVIDERS: ATTEND Internal Medicine Interventional Cardiology
DX: R07.89 Other chest pain (principal); Z88.8 Allergy status to other drugs, medicaments and biological substances; Z91.030 Bee allergy status
CPT/HCPCS: 93458; 76937; C1760; C1769 ×2; C1894; J2250; J2001 ×2; J3010; Q9967

== ENCOUNTER 2024-04-15 01:58 | Emergency (ER) | payer MEDICARE ==
--- NOTE | 2024-04-15 02:14 | ED ---
Chest Pain HPI - General Stated Complaint: chest pain Time Seen by Provider: 04/15/24 02:04 Source: RN notes reviewed, old records reviewed Mode of arrival: EMS Limitations: no limitations - History of Present Illness Initial Comments: This is a 68-year-old male to the ER for evaluation of chest pain this chest pain woke him up from sleep tonight. Heaviness on the chest left-sided pain. Patient's "is that he feels like an elephant is sitting on his chest. He has had this before and does have ER visits prior for chest pain recent heart catheterization MD Complaint: chest pain -: hour(s) Onset: during rest, during exertion Pain Location: substernal, left chest Pain Radiation: none Severity: moderate Severity scale (1-10): 4 Quality: tightness, heaviness Consistency: constant Worsens With: nothing Anginal Symptoms: sense of impending doom Other Symptoms: palpitations Treatments Prior to Arrival: none - Related Data Home Medications Medication Instructions Recorded Confirmed Albuterol Sulfate [Proair Hfa] 2 puff INHALATION RT-Q6H PRN 12/04/19 07/25/22 Topiramate [Topamax] 25 mg PO BID 12/04/19 07/25/22 Lord Prime Joint Formula 1 tab PO DAILY 07/21/22 Olmesartan Medoxomil [Benicar] 20 mg PO PC-LUNCH 07/21/22 07/25/22 Quercetin 500 mg PO DAILY 07/21/22 07/25/22 SUMAtriptan succinate [Imitrex] 50 mg PO DIRECTED PRN 07/21/22 07/25/22 Zinc Gluconate [Zinc] 50 mg PO DAILY 07/21/22 07/21/22 hydroCHLOROthiazide [Hydrodiuril] 25 mg PO DAILY 07/21/22 07/25/22 Aspirin 325 mg PO DAILY PRN 07/25/22 07/25/22 Allergies Allergy/AdvReac Type Severity Reaction Status Date / Time hydromorphone [From Dilaudid] Allergy Itching Verified 04/15/24 02:18 venom-honey bee Allergy Anaphylaxis Verified 04/15/24 02:18 venom-wasp Allergy Anaphylaxis Verified 04/15/24 02:18 Review of Systems ROS Statement: Those systems with pertinent positive or pertinent negative responses have been documented in the HPI. ROS Other: All systems not noted in ROS Statement are negative. EKG Findings - EKG Comments: EKG Findings:: EKG sinus 84 WI 201 QRS 105 QTc 385 - EKG Results: EKG: interpreted by SHERLEY Past Medical History Past Medical History: Cancer, GERD/Reflux, Neurologic Disorder Additional Past Medical History / Comment(s): hx stage 3 bone cancer-in remission per pt. + COLOGARD. MIGRAINE HEADACHES. CHRONIC SINUS INFECTIONS History of Any Multi-Drug Resistant Organisms: None Reported Past Surgical History: Cholecystectomy, Orthopedic Surgery Additional Past Surgical History / Comment(s): COLONOSCOPY. RT KNEE SX X 3. LT ROTATOR CUFF REPAIR. TUMORS REMOVED FROM NECK Past Anesthesia/Blood Transfusion Reactions: Postoperative Nausea & Vomiting (PONV) Additional Past Alcohol Use History / Comment(s): QUIT SMOKING SOMETIME IN HIS 50'S - Past Family History Father Sister(s) Family Medical History: Cancer General Exam General appearance: alert, in no apparent distress, anxious Head exam: Present: atraumatic, normocephalic, normal inspection Eye exam: Present: normal appearance, PERRL, EOMI. Absent: scleral icterus, conjunctival injection, periorbital swelling ENT exam: Present: normal exam, mucous membranes moist Neck exam: Present: normal inspection. Absent: tenderness, meningismus, lymphadenopathy Respiratory exam: Present: normal lung sounds bilaterally. Absent: respiratory distress, wheezes, rales, rhonchi, stridor Cardiovascular Exam: Present: regular rate, normal rhythm, normal heart sounds. Absent: systolic murmur, diastolic murmur, rubs, gallop, clicks GI/Abdominal exam: Present: soft, normal bowel sounds. Absent: distended, tenderness, guarding, rebound, rigid Extremities exam: Present: normal inspection, full ROM, normal capillary refill. Absent: tenderness, pedal edema, joint swelling, calf tenderness Back exam: Present: normal inspection Neurological exam: Present: alert, oriented X3, CN II-XII intact Psychiatric exam: Present: normal affect, normal mood Skin exam: Present: warm, dry, intact, normal color. Absent: rash Course Vital Signs 04/15/24 04/15/24 02:09 03:25 Temperature 97.4 F L Pulse Rate 84 87 Respiratory 18 18 Rate Blood Pressure 170/95 188/85 O2 Sat by Pulse 95 98 Oximetry - Reevaluation(s) Reevaluation #1: 04/15/24 02:15 Medical records reviewed Prior heart catheterization is reviewed showing normal coronary arteries Reevaluation #2: 04/15/24 06:03 Patient's chest pain is resolved here in the ER Reevaluation #3: 04/15/24 06:03 Patient informed of results and questions answered Reevaluation #4: Was pt. sent in by a medical professional or institution (, PA, [facility], urgent care, hospital, or jail...) When possible be specific @ -no Did you speak to anyone other than the patient for history (EMS, parent, family, police, friend...)? What history was obtained from this source @ -no Did you review nursing and triage notes (agree or disagree)? Why? @ -agree Are old charts reviewed (outside hosp., previous admission, EMS record, old EKG, old radiological studies, urgent care reports/EKG's, jail records)? Repo rt findings @ -yes Differential Diagnosis (chest pain, altered mental status, abdominal pain women, abdominal pain men, vaginal bleeding, weakness, fever, dyspnea, syncope, headache, dizziness, GI bleed, back pain, seizure, CVA, palpatations, mental health, musculoskeletal)? @ -prior EKG interpreted by me (3pts min.). @ -yes X-rays interpreted by me (1pt min.). @ -yes negative for acute disease CT interpreted by me (1pt min.). @ -no U/S interpreted by me (1pt. min.). @ -no What testing was considered but not performed or refused? (CT, X-rays, U/S, labs)? Why? @ -none What meds were considered but not given or refused? Why? @ -none Did you discuss the management of the patient with other professionals (professionals i.e. , SARAHI, [facility], lab, RT, psych nurse, social services counselor, microscopist, te acher, chief legal officer, showcase maker)? Give summary @ -no Was smoking cessation discussed for >3mins.? @ -no Was critical care preformed (if so, how long)? @ -no Were there social determinants of health that impacted care today? How? (Homelessness, low income, unemployed, alcoholism, drug addiction, transportation, low edu. Level, literacy, decrease access to med. care, custodial, rehab)? @ -none Was there de-escalation of care discussed even if they declined (Discuss DNR or withdrawal of care, Hospice)? DNR status @ -no What co-morbidities impacted this encounter? (DM, HTN, Smoking, COPD, CAD, Cancer, CVA, ARF, Chemo, Hep., AIDS, mental health diagnosis, sleep apnea, morbid obesity)? @ -none Was patient admitted / discharged? Hospital course, mention meds given and route, prescriptions, significant lab abnormalities, going to OR and other pertinent info. @ - Undiagnosed new problem with uncertain prognosis? @ -no Drug Therapy requiring intensive monitoring for toxicity (Heparin, Nitro, Insulin, Cardizem)? @ -no Were any procedures done? @ -no Diagnosis/symptom? @ - Acute, or Chronic, or Acute on Chronic? @ -Acute Uncomplicated (without systemic symptoms) or Complicated (systemic symptoms)? @ -Complicated Side effects of treatment? @ -no Exacerbation, Progression, or Severe Exacerbation? @ -exacerbation Poses a threat to life or bodily function? How? (Chest pain, USA, AR, pneumonia, PE, COPD, DKA, ARF, appy, cholecystitis, CVA, Diverticulitis, Homicidal, Suicidal, threat to staff... and all critical care pts) @ -yes Reevaluation #5: Differential Chest Pain: Stable Angina, Unstable Angina, STEMI, NSTEMI Aortic Dissection, Pneumothorax, Musculoskeletal, Esophageal Spasm GERD, Cholecystitis, Pancreatitis, Zoster, this is not meant to be an all-inclusive list. Chest Pain MDM - MDM 68 male to ER for evaluation of chest pain. Patient had normal heart catheterization less than a year ago, patient has troponin negative x 2 normal EKG can be discharged home Disposition Clinical Impression: Atypical chest pain, Chest pain Disposition: HOME SELF-CARE Condition: Good Instructions (If sedation given, give patient instructions): Chest Pain (ED) Is patient prescribed a controlled substance at d/c from ED?: No Referrals: David Quiles MD [Primary Care Provider] - 1-2 days Time of Disposition: 06:00
[2024-04-15 02:18] VITALS: RESP 18; TEMP 97.4
[2024-04-15 02:45] LABS: Partial Thromboplastin Time 24.5 sec (22.0-30.0); Prothrombin Time 10.7 sec (10.0-12.5)
[2024-04-15 02:52] LABS: Basophils % (A) 0 %; Eosinophils # (A) 0.3 k/uL (0-0.7); Eosinophils % (A) 3 %; HCT 42.9 % (39.0-53.0); HGB 13.7 gm/dL (13.0-17.5); Lymphocytes # (A) 2.1 k/uL (1.0-4.8); Lymphocytes % (A) 19 %; MCH 31.6 pg (25.0-35.0); MCHC 31.9 g/dL (31.0-37.0); MCV 98.9 fL (80.0-100.0); Mean Platelet Volume 8.4; Monocytes # (A) 0.7 k/uL (0-1.0); Monocytes % (A) 6 %; Neutrophils # (A) 7.6 k/uL (1.3-7.7); Neutrophils % (A) 71 %; Platelet Count 189 k/uL (150-450); RBC 4.34 m/uL (4.30-5.90); RDW 12.9 % (11.5-15.5); WBC 10.8 k/uL (3.8-10.6)
--- NOTE | 2024-04-15 03:06 | XR ---
EXAM: XR Chest, 2 Views CLINICAL HISTORY: ITS.REASON XR Reason: Chest Pain TECHNIQUE: Frontal and lateral views of the chest. COMPARISON: No relevant prior studies available. FINDINGS: Lungs: Unremarkable. No consolidation. Pleural space: Unremarkable. No pneumothorax. Heart: Cardiomegaly. Mediastinum: Unremarkable. Bones/joints: Unremarkable. IMPRESSION: No acute findings in the chest.
[2024-04-15 03:22] LABS: ALT 26 U/L (4-49); AST 25 U/L (17-59); African American GFR (CKD) >90 (>60 ml/min/1.73 sqM); Albumin 4.3 g/dL (3.5-5.0); Alcohol <10 mg/dL; Alkaline Phosphatase 78 U/L (38-126); Anion Gap 6 mmol/L; Blood Urea Nitrogen 25 mg/dL (9-20); Calcium 9.5 mg/dL (8.4-10.2); Carbon Dioxide 28 mmol/L (22-30); Chloride 103 mmol/L (98-107); Glucose 140 mg/dL (74-99); Lipase 93 U/L (23-300); Non-African American GFR(CKD) >90 (>60 ml/min/1.73 sqM); Potassium 4.9 mmol/L (3.5-5.1); Sodium 137 mmol/L (137-145); Total Bilirubin 0.8 mg/dL (0.2-1.3)
[2024-04-15] MEDS: MORPHINE SULFATE 4 MG/ML SYRINGE IVP STA (03:23)
[2024-04-15 03:29] LABS: NT-Pro-B-Type Natriuretic Pept 71 pg/mL
[2024-04-15] MEDS: ONDANSETRON 4 MG/2 ML VIAL IVP STA (04:32)
[2024-04-15] MEDS: FAMOTIDINE 20 MG/2 ML VIAL IV STA (04:32)
[2024-04-15 06:34] VITALS: BP 131/63; PULSE 74
== END 2024-04-15 06:33 | disposition home or self-care (01) ==
LOC: EC 01:58
DX: R07.89 Other chest pain (principal)
CPT/HCPCS: 36415; 93005; 85379; 83880; 80053; 83690; 83735; 84484; 85025; 85610; 85730; 80320; 71046; 99285; 96374; 96375; J2270; J2405; J3490